=== PATIENT | female | born 1935 | race Caucasian/White ===

== ENCOUNTER 2023-01-14 16:45 | Emergency (ER) | payer SELFPAY ==
[2023-01-14 16:56] VITALS: BP 165/77; PULSE 66; RESP 18; TEMP 36.7; O2SAT 97; BMI 22.6
[2023-01-14] MEDS: RABIES IMMUNE GLOBULIN 300 UNIT/ML 1mL VIAL 1020 UNIT IM (18:07)
[2023-01-14] MEDS: RABIES VACCINE (RABAVERT) 2.5 UNITS SYRINGE IM (18:08)
--- NOTE | 2023-01-14 18:16 | ED.ANIMALBIT ---
HPI - Animal Bite General Chief Complaint: Animal Bite Stated Complaint: bat bite to right index finger Time Seen by Provider: 01/14/23 17:13 Source: patient Mode of arrival: Ambulatory History of Present Illness HPI narrative: Is a 87-year-old female history of atrial fibrillation on Xarelto metoprolol presenting today with right finger bat bite. Window was left open she saw something on the ground she thought it was a sock she went to pick it up and it bit her. There are 2 teeth carr. Related Data Allergies Allergy/AdvReac Type Severity Reaction Status Date / Time No Known Drug Allergies Allergy Verified 01/14/23 16:58 Review of Systems Review of Systems ROS Unobtainable: All systems reviewed & are unremarkable except as noted in HPI and below Patient History Social History Smoking Status: Never smoker Smoking Status: Never smoker alcohol intake frequency: holidays/special occasions only Substance Use Type: does not use Exam Initial Vital Signs Initial Vital Signs: Vital Signs Temperature 98.1 F 01/14/23 16:56 Pulse Rate 66 01/14/23 16:56 Respiratory Rate 18 01/14/23 16:56 Blood Pressure 165/77 H 01/14/23 16:56 Pulse Oximetry 97 01/14/23 16:56 Oxygen Delivery Method Room Air 01/14/23 16:56 GENERAL: Alert pleasant 81-year-old female CARDIOVASCULAR: peripheral pulses in tact, cap refill <2 sec RESPIRATORY: No respiratory distress, speaks in full sentences without difficulty EXTREMITIES: Normal range of motion, no clubbing or edema. Neurovascularly intact NEUROLOGICAL: Cranial nerves II through XII grossly intact. Normal gait and speech. SKIN: Fingers currently wrapped after immunoglobulin and vaccine given Course Orders Ordered: Discontinued Medications Rabies Immune Globulin (Rabies Immune Globulin 300 Unit/Ml 1ml Vial) 1,020 unit 20 unit/kg (1020 unit) IM NOW ONE Stop: 01/14/23 17:14 Last Admin: 01/14/23 18:07 Dose: 1,020 unit Documented By: JENNYFER Rabies Vaccine (Rabies Vaccine (Rabavert) 2.5 Units Syringe) 2.5 units IM .ONCE ONE Stop: 01/14/23 17:14 Last Admin: 01/14/23 18:08 Dose: 2.5 units Documented By: JENNYFER Vital Signs Vital signs: Vital Signs - 8 hr 01/14/23 16:56 01/14/23 18:48 Temperature 98.1 F Pulse Rate 66 61 Respiratory Rate 18 18 Blood Pressure 165/77 H 162/81 H Pulse Oximetry 97 97 Oxygen Delivery Method Room Air Room Air MDM - Animal Bite MDM Narrative Medical decision making narrative: Patient 87-year-old female who presents with bat bite to her finger. She is given the immunoglobulin the rabies vaccine. Instructed to follow-up for further rabies vaccination at the appropriate dates. She will likely do this at another facility. Discharge Plan Departure Patient Disposition: Home Clinical Impression: Bat bite of finger Instructions: Rabies, Rabies Vaccine Activity Restrictions/Additional Instructions: *You have been diagnosed with bat bite *What to do: At this time you will need further vaccines. You may go anywhere coordinate with your doctor. January 17, January 21, January 28 *Continue to take medications as directed *Follow up with your primary care provider in 2-3 days or call [phone] *Return to ER if you should have increasing redness pain any sign of rabies or any new, worsening or concerning symptoms Stand Alone Forms: Patient Portal/API
--- NOTE | 2023-01-14 18:20 | PC.NURSE ---
Pt has 2 very small puncture wounds from a bat bite
[2023-01-14 18:48] VITALS: BP 162/81; PULSE 61; RESP 18; O2SAT 97
== END 2023-01-14 18:49 | disposition home or self-care (01) ==
PROVIDERS: Emergency Provider Emergency Medicine
DX: S61.250A Open bite of right index finger without damage to nail, initial encounter (principal); W55.81XA Bitten by other mammals, initial encounter; Z23 Encounter for immunization
CPT/HCPCS: 90375; 90471; 90675; 96372; 99283